=== PATIENT | male | born 1975 | race Caucasian/White ===

== ENCOUNTER 2022-04-13 14:25 | Outpatient (CLI) | payer OTHER ==
[~2022-04-13 14:25] MED LIST: ROPIVACAINE 0.5% PF 20 ML AMPULE ONE; TRIAMCINOLONE 40 MG/ML VIAL ONE; lidocaine 1% 20 ML MDV ONE
[2022-04-13] MEDS: lidocaine 1% 20 ML MDV SUBQ ONE (15:34)
[2022-04-13] MEDS: TRIAMCINOLONE 40 MG/ML VIAL IM ONE (15:35)
--- NOTE | 2022-04-13 15:35 | Ultrasound Report ---
PROCEDURE: Injection Single Tendon INDICATIONS: PAIN IN RIGHT SHOULDERE TECHNIQUE: The indications, alternatives, benefits, risks, and complications of the procedure were explained to the patient. Written informed consent was obtained and placed in the chart. The patient was placed in an appropriate position on the fluoroscopy table, and a site was chosen for percutaneous access un shilpi ultrasound guidance. Local anesthetic was administered using a 1% lidocaine solution. A hypoder angie or spinal needle was then used to access the symptomatic joint. Intra-articular location of the needle tip was confirmed by real time ultrasound imaging, followed by steroid administration. The ne edle was then withdrawn, and a bandage applied to the puncture site. FINDINGS: Region injected: Right bicipital groove surrounding the right biceps tendon. Medications injected: 5 mL of 40 mg/mL Kenalog and 0.5% Ropivacaine mixture. Complications: None. IMPRESSION: Successful ultrasound guided administration of steroid and anaesthetic solution into the right bicipital groove surrounding the right biceps tendon.. Reviewed by: Dariusz Alexis MD on 04/13/2022 3:33 PM PDT Approved by: Dariusz Alexis MD on 04/13/2022 3:33 PM PDT Station ID: [id number]
[2022-04-13] MEDS: ROPIVACAINE 0.5% PF 20 ML AMPULE EP ONE (15:42)
== END 2022-04-13 14:26 | disposition home or self-care (01) ==
LOC: DI 14:25
DX: M25.511 Pain in right shoulder (principal)
CPT/HCPCS: 20550

== ENCOUNTER 2023-02-14 13:46 | Emergency (ER) | payer OTHER ==
--- NOTE | 2023-02-14 13:59 | ED Physician Documentation ---
PD HPI LOWER EXT INJURY - Stated complaint Stated Complaint: RT FOOT SWELLING/PAIN - Chief complaint Chief Complaint: Ext Problem - History obtained from History obtained from: Patient - History of Present Illness PD HPI LOW EXT INJURY LOCATION: Right, Foot, Toe Type of injury: No: Fall, Twist Timing - onset: How many days ago (2) Timing - duration: Days (2) Timing - details: Abrupt onset, Still present Worsened by: Moving, Palpating Associated symptoms: Swelling, Discolored (redness medial great toe MTP area. This is extended to medial aspect dorsal foot.). No: Weakness, Numbness Similar symptoms before: Diagnosis (prior symptoms with gout in the past.) Review of Systems Constitutional: denies: Fever, Chills Skin: denies: Abrasion (s), Laceration (s) Neurologic: denies: Focal weakness, Numbness PD PAST MEDICAL HISTORY - Past Medical History Cardiovascular: None Endocrine/Autoimmune: None Musculoskeletal: Gout - Present Medications Home Medications: Ambulatory Orders Medication Instructions Recorded Confirmed Colchicine 0.6 mg PO BID #15 tablet 02/14/23 DULoxetine [Cymbalta] 30 mg PO DAILY PM 02/14/23 02/14/23 DULoxetine [Cymbalta] 60 mg PO DAILY 02/14/23 02/14/23 Methylphenidate HCl [Relexxii] 72 mg PO DAILY 02/14/23 02/14/23 Trazodone HCl 150 mg PO HS 02/14/23 02/14/23 allopurinoL [Zyloprim] 100 mg PO DAILY 02/14/23 02/14/23 dexAMETHasone [Decadron] 4 mg PO DAILY #5 tablet 02/14/23 oxyCODONE [Roxicodone] 5 mg PO Q6H PRN #15 tablet 02/14/23 - Allergies Allergies/Adverse Reactions: Allergies Allergy/AdvReac Type Severity Reaction Status Date / Time No Known Drug Allergies Allergy Verified 02/14/23 13:51 PD ED PE NORMAL - Vitals Vital signs reviewed: Yes - General General: Alert and oriented X 3, Well developed/nourished, Other (appears in pain. walking favoring not weight on ball of foot. ) - Derm Derm: Normal color, Warm and dry - Extremities Extremities: Other ( right great toe medial MTP area with local selling, redness, very tender. No skin sores/rash. Redness extending to medial dorsal aspect of foot. ) Results - Vitals Vitals: Oxygen O2 Source Room air PD Medical Decision Making - ED course Complexity details: considered differential (history of gout and has findings/symptoms c/w gout. ), d/w patient Departure - Departure Disposition: 01 Home, Self Care Clinical Impression: Right foot pain, Gout flare Condition: Stable Record reviewed to determine appropriate education?: Yes Instructions: ED Arthritis Gout Follow-Up: KAYLA RICCI DO [Primary Care Provider] - Prescriptions: Colchicine 0.6 mg PO BID #15 tablet dexAMETHasone [Decadron] 4 mg PO DAILY #5 tablet oxyCODONE [Roxicodone] 5 mg PO Q6H PRN #15 tablet PRN Reason: Pain Comments: The mainstay of treatment for gout flareup is anti-inflammatories. We can use a combination of the colchicine 0.6 mg twice daily for the next several days to a week. Combine that with Decadron steroid anti-inflammatory daily for the next 5 days. Take these with food. You can use antacids if needed for upset stomach as well. I would anticipate improvement over the next several days and resolved by 3 to 5 days. In addition for pain itself, you can use Tylenol/acetaminophen every 4-6 hours if needed or add oxycodone every 6-8 hours if needed for worse pain. I sent new prescriptions to [facility] pharmacy in [place]. Use crutches if needed for partial to no weightbearing to help reduce some of the pain with walking. I am prescribing a short course of narcotic pain medication for you. These are potentially dangerous and addictive medications that should be used carefully. These medications may constipate you. Take an [id number] stool softener such as docusate twice daily with plenty of water while taking these medications. If you go 24 hours without a bowel movement, take [id number] MiraLAX, per package instructions. Do not drink or drive while taking these medications. If you received narcotic or sedating medications while in the emergency department do not drive for 24 hours. Store this medication in a safe, secure place and out of reach of children. It is a violation of federal law to give or sell this medication to another person or to use in a manner other than prescribed. The ED will not refill narcotic prescriptions, including prescriptions lost or stolen. You can dispose of unwanted medications at the [facility]'s office or at several pharmacies such as [facility]. Forms: PCP List Discharge Date/Time: 02/14/23 14:40
[2023-02-14 14:00] VITALS: BP 125/86
[2023-02-14] MEDS ORDERED: ACETAMINOPHEN 325 MG TABLET PO STA (14:15)
[2023-02-14] MEDS ORDERED: dexAMETHasone 4 MG TABLET PO STA (14:16)
[2023-02-14] MEDS ORDERED: KETOROLAC 30 MG/ML VIAL IM STA (14:16)
--- OUTSIDE RECORDS SUMMARY | 2023-02-14 14:41 | EXTERNAL MEDICAL SUMMARY RPT | Continuity of Care Document ---
Author Name Unknown Address [address] [place] [address] Phone Organization [place] Address [address] [place] [address] Phone Care Team Providers Care Panel Maker Name Role Phone Dereck Marion Unavailable Unavailable Allergies and Intolerances date description facility reaction severity (no date) No Known Drug Allergies [facility] (no carlitos ction) (no severity) Medications date description facility 2022-12-29 00:00 Doxycycline Hyclate [facility] Problems date description facility 2022-12-29 00:00 Ar[address] of [address] [facility] Procedures date description facility 2022-12-29 00:00 X-ray of right ankle, three or more views [facility] 2022-12-29 00:00 XR knee RT [address] [place] [address] Results/Labs test date facility value unit notes Social History date description facility 2022-12-29 00:00 Tobacco smoking consumption unk nown (finding) [facility] Vital Signs date measurement value units 2022-12-29 00:00 BMI 31.0 kg/m2 2022-12-29 00:00 BP_diastolic 73 mmHg 2022-12-29 00:00 BP_systolic 117 mmHg 2022-12-29 00:00 heart_rate 72 /min 2022-12-29 00:00 height_metric 175.26 cm 2022-12-29 00:00 height_standard 69 in 2022-12-29 00:00 o2_saturation 99 % 2022-12-29 00:00 respiration_rate 18 /min 2022-12-29 00:00 temperature_metric 37 C 2022-12-29 00:00 temperature_standard 98.6 F 2022-12-29 00:00 weight_metric 95.25 kg 2022-12-29 00:00 weight_standard 209.99 lb
== END 2023-02-14 14:40 | disposition home or self-care (01) ==
LOC: ED 13:46
DX: M10.9 Gout, unspecified (principal)
CPT/HCPCS: 96372; 99283; A9270; J8540